=== PATIENT | male | born 1970 | race Two or more races ===

== ENCOUNTER 2018-07-22 11:54 | Emergency (ER) | payer MEDICAID, OTHER ==
[~2018-07-22] VITALS: Wt 96.0 kg
[2018-07-22 11:56] VITALS: BP 139/90; PULSE 92; RESP 16
[2018-07-22] MEDS ORDERED: ONDANSETRON (ODT) 4 MG TAB ODT STA (12:15)
[2018-07-22] MEDS ORDERED: KETOROLAC 60 MG INJ IM STA (12:15)
[2018-07-22] MEDS ORDERED: HYDROCODONE/APAP (5/325) TAB PO ONE (12:30)
[2018-07-22] MEDS ORDERED: HYDR-4011 PO (13:27)
[2018-07-22] MEDS ORDERED: IBUP-1542 PO (13:27)
--- NOTE | 2018-07-22 13:31 | ERD ---
ER Documentation Chief Complaint Chief Complaint LOW BACK PAIN X1 DAY, NO INJURY HPI This 48-year-old male presents with low back pain since this morning. Started after awkward movement possibly. Denies fall. He does have a remote history of injury although several years ago. Denies any bowel or bladder incontinence, weakness. Denies any head injury. ROS All systems reviewed and are negative except as per history of present illness. Medications Home Meds Active Scripts Hydrocodone/Acetaminophen (Temple 5-325 Tablet) 1 Each Tablet, 1 TAB PO Q6H PRN for PAIN, #10 TAB Prov:ALYSSA WEEKS MD 07/22/18 Ibuprofen* (Motrin*) 600 Mg Tab, 600 MG PO Q6, #20 TAB Prov:ALYSSA WEEKS MD 07/22/18 Allergies Allergies: Coded Allergies: No Known Drug Allergies (Verified Allergy, 10/22/12) PMhx/Soc History of Surgery: No Anesthesia Reaction: No Hx Neurological Disorder: No Hx Respiratory Disorders: No Hx Cardiac Disorders: No Hx Psychiatric Problems: No Hx Miscellaneous Medical Probl: Yes (back pain) Hx Alcohol Use: No Hx Substance Use: No Hx Tobacco Use: No Smoking Status: Never smoker FmHx Family History: No diabetes, No coronary disease, No other Physical Exam Vitals Vital Signs Date Temp Pulse Resp B/P (MAP) Pulse Ox O2 O2 Flow FiO2 Time Delivery Rate 07/22/18 99.0 92 16 139/90 95 11:56 (106) Physical Exam Const: No acute distress. And pain in in a wheelchair due to discomfort. Head: Atraumatic Eyes: Normal Conjunctiva ENT: Normal External Ears, Nose and Mouth. Neck: Full range of motion. No meningismus. Resp: Clear to auscultation bilaterally Cardio: Regular rate and rhythm, no murmurs Abd: Soft, non tender, non distended. Normal bowel sounds Skin: No petechiae or rashes Back: No midline or flank tenderness. Tenderness L4-5 paraspinous area without deformities, midline tenderness or CVA tenderness. Ext: No cyanosis, or edema Neur: Awake and alert with no appreciable focal neurologic deficits. Psych: Normal Mood and Affect Results 24 hrs Current Medications Medications Dose Sig/Andrés Start Time Status Last (Trade) Ordered Route PRN Stop Time Admin Dose Reason Admin Ketorolac 60 mg ONCE STAT 07/22/18 DC 07/22/18 Tromethamine IM 12:15 12:26 (Toradol) 07/22/18 12:16 1 tab ONCE ONCE 07/22/18 DC 07/22/18 Acetaminophen PO 12:30 12:21 / 07/22/18 12:31 Hydrocodone Bitart (Temple (5/325)) Ondansetron 8 mg ONCE STAT 07/22/18 DC 07/22/18 HCl (Zofran ODT 12:15 12:21 Odt) 07/22/18 12:16 Procedures/MDM X-ray LS-Spine 3V Interpreted by me: Bones: No fracture, or lytic lesions Joints: No dislocation Foreign body: None impression-no acute findings on lumbar spine x-ray Patient was given Toradol 60 mg IM and Temple 5 mg by mouth. Patient is a signs and symptoms of lumbar strain without signs of epidural abscess, deficits, bacterial infection, genitourinary etiology. We will treat with a short course of Temple, ibuprofen, instructions for back exercises, primary care follow-up and return precautions. Cures review negative. The patient was stable with no new complaints during the ER course. Clinically, there is no current evidence to suggest meningitis, sepsis, acute abdomen, pneumonia, stroke, acute coronary syndrome, pulmonary embolism, aortic dissection or any other emergent condition appearing to require further evaluation or hospitalization. Patient counseled regarding my diagnostic impression and care plan. Prior to discharge all questions answered. Pt agrees with treatment plan and understands strict return precautions. Pt is instructed to follow up with primary care provider within 24- 48 hours. Precautionary instructions provided including instructions to return to the ER if not improving or for any worsening or changing symptoms or concerns. Disclaimer: Inadvertent spelling and grammatical errors are likely due to EHR/dictation software use and do not reflect on the overall quality of patient care. Also, please note that the electronic time recorded on this note does not necessarily reflect the actual time of the patient encounter. Departure Diagnosis: Primary Impression: Back pain Back pain location: low back pain Chronicity: acute Back pain laterality: bilateral Sciatica presence: without sciatica Qualified Codes: M54.5 - Low back pain Condition: Stable Patient Instructions: Back Exercises, Lumbar, Back Pain (Acute Or Chronic) Referrals: DOCTOR,NOT ON STAFF (PCP) Additional Instructions: x ray normal. Recommend exercise and stretching at home and recheck with primary doctor or for new or worsening symptoms. Examines normal hoy. Cheque otro vez con gonzales doctor primario en el proximo francis or regresa para mas o nueva simptomas. LAYSSA WEEKS MD Jul 22, 2018 13:31
== END 2018-07-22 14:14 | disposition home or self-care (01) ==
LOC: FTE 11:54
DX: M54.5 Low back pain (principal)
CPT/HCPCS: 72100; 96372; J1885; Z7502; Z7610